=== PATIENT | female | born 1940 | race Two or more races ===

== ENCOUNTER 2020-02-02 07:41 | Day surgery (SDC) | payer MEDICARE ==
[~2020-02-02] VITALS: Ht 157.5 cm; Wt 51.9 kg
[2020-02-02] VITALS (8 sets, daily range): BP systolic 128–165; BP diastolic 70–87
[2020-02-02] MEDS ORDERED: normal saline 1,000 ML IV SCH ×2 (08:05→12:05)
[2020-02-02] MEDS ORDERED: diphenhydrAMINE 25mg capsule PO PRN (08:05)
[2020-02-02] MEDS ORDERED: HYDR-4383 PO (08:14)
[2020-02-02] MEDS ORDERED: METF500T PO (08:16)
[2020-02-02] MEDS ORDERED: APIX5TAB3 PO (08:16)
[2020-02-02] MEDS ORDERED: OMEP40CA13 PO (08:16)
[2020-02-02] MEDS ORDERED: ceFAZolin 2gm in dextrose, iso 50 ML IV ONE (08:25)
[2020-02-02] MEDS ORDERED: LIDOcaine 1% (10mg/ml)w/preservative injection 20ml MDV ONE (08:28)
[2020-02-02] MEDS ORDERED: midazolam 2 mg/2 ml injection ONE ×3 (08:28→09:50)
[2020-02-02] MEDS ORDERED: fentaNYL/PF 50MCG/1 ML 2ML syringe ONE ×2 (08:28→10:46)
[2020-02-02] MEDS ORDERED: iohexol 350 MG/ML 50ML vial IV ONE (08:29)
[2020-02-02] MEDS ORDERED: iohexol 350MG/ML 100ml bottle IV ONE (08:29)
[2020-02-02] MEDS ORDERED: vancomycin/NS 1 GM ADD-VANTAGE 250 ML IV ONE (08:55)
[2020-02-02] MEDS ORDERED: vancomycin 1,000mg inj ONE (08:55)
[2020-02-02 09:01] LABS: BASOPHILS # (AUTO) 0.1 X10'3 (0-0.2); BASOPHILS % (AUTO) 1.2 % (0-1); EOSINOPHILS # (AUTO) 0.2 X10'3 (0-0.9); EOSINOPHILS % (AUTO) 4.2 % (0-6); HEMATOCRIT 34.9 % (35.0-45.0); HEMOGLOBIN 11.3 g/dl (12.0-16.0); LYMPHOCYTES # (AUTO) 1.3 X10'3 (1.1-4.8); LYMPHOCYTES % (AUTO) 27.9 % (21-51); MEAN CORPUSCULAR HEMOGLOBIN 27.5 PG (27.0-31.0); MEAN CORPUSCULAR HGB CONC 32.5 g/dL (33.0-36.5); MEAN CORPUSCULAR VOLUME 84.6 FL (78-98); MEAN PLATELET VOLUME 7.2 FL (7.4-10.4); MONOCYTES # (AUTO) 0.4 X10'3 (0-0.9); MONOCYTES % (AUTO) 9.4 % (2-12); NEUTROPHILS # (AUTO) 2.6 X10'3 (1.8-7.7); NEUTROPHILS % (AUTO) 57.3 % (42-75); PLATELET COUNT 204 X10'3 (140-440); RED BLOOD COUNT 4.13 X10'6 (4.20-5.60); RED CELL DISTRIBUTION WIDTH 16.4 % (11.5-14.5); WHITE BLOOD COUNT 4.5 X10'3 (4.5-11.0)
[2020-02-02 09:09] LABS: ALBUMIN 3.4 G/DL (3.4-5.0); ANION GAP 7 (8-16); BLOOD UREA NITROGEN 13 MG/DL (7-18); BUN/CREATININE RATIO 12.9 (6.6-38.0); CALCIUM 9.2 MG/DL (8.5-10.1); CHLORIDE 108 MMOL/L (99-107); CREATININE 1.01 MG/DL (0.40-0.90); GLUCOSE 100 MG/DL (70-104); MAGNESIUM 2.2 MG/DL (1.5-2.4); POTASSIUM 3.6 MMOL/L (3.5-5.1); SODIUM 143 MMOL/L (135-145); TOTAL CARBON DIOXIDE 27.7 MMOL/L (24-32); eGFR 53 ML/MIN
[2020-02-02] MEDS ORDERED: heparin 1,000unit/ml 10ml vial 10 ML ONE (09:39)
[2020-02-02] MEDS ORDERED: LIDOcaine 1% W/epiNEPHrine 1:100,000 20ml vial ONE (10:14)
[2020-02-02] MEDS ORDERED: proCHLORperazine 10 MG/2 ml inj IV PRN (12:10)
[2020-02-02] MEDS ORDERED: ondansetron/PF 4mg/2ml inj IV PRN (12:10)
[2020-02-02] MEDS ORDERED: HYDROcodone/acetaminophen 10/325mg tab PO PRN (12:10)
[2020-02-02] MEDS ORDERED: HYDROcodone/acetaminophen 5mg/325mg tablet PO PRN (12:10)
--- NOTE | 2020-02-02 14:10 | NUR ---
Called pt's family per her request. Family aware of DC time Will continue to monitor.
[2020-02-02] MEDS ORDERED: vancomycin/NS 1 GM ADD-VANTAGE 250 ML IV SCH ×2 (20:00)
== END 2020-02-02 15:00 | disposition home or self-care (01) ==
LOC: SSTAY O 07:41
PROVIDERS: ATTEND Internal Medicine Cardiovascular Disease
DX: I49.5 Sick sinus syndrome (principal); R07.9 Chest pain, unspecified; I48.0 Paroxysmal atrial fibrillation; E78.5 Hyperlipidemia, unspecified; E11.9 Type 2 diabetes mellitus without complications; K21.9 Gastro-esophageal reflux disease without esophagitis; Z90.710 Acquired absence of both cervix and uterus; Z98.890 Other specified postprocedural states; Z79.899 Other long term (current) drug therapy
CPT/HCPCS: 33208; 36415; 71045; 80048; 83735; 85025; 85610; 93005; 93458; 99152; 99153; C1769; C1785; C1894; C1898; J1644; J2001; J2250; J3010; J3370; J7030; Q0163; Q9967; A4565; A4620; A6258